=== PATIENT | male | born 1995 | race Caucasian/White ===

== ENCOUNTER 2022-09-20 16:22 | Emergency (ER) | payer OTHER, SELFPAY ==
--- NOTE | ~2022-09-20 | XR_ITS ---
EXAMINATION: XR shoulder RT min 2V DATE: 09/20/2022 17:15 INDICATION: Nontraumatic right shoulder pain TECHNIQUE: AP internally and externally rotated, AP oblique externally rotated and transscapular Y vi ews of the right shoulder were obtained. COMPARISON: None FINDINGS: Alignment of the right acromioclavicular joint space. There appears to be some age-indeterminate frag mentation, potentially acute at the lateral head of the clavicle. Alignment is otherwise normal. No o ther lesions suspicious for fracture. Glenohumeral joint space is normal.Visual is portions of the ri ght lung are clear. Soft tissues are unremarkable. IMPRESSION: Widening of the right acromioclavicular joint spaces with some age-indeterminate fragmentation at the lateral head of the right clavicle. Differential would include sequela of prior trauma with distal c lavicular fracture or changes of prior acromioplasty. Correlate with clinical/surgical history. 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 Differential would i nclude sequela of prior trauma with distal clavicular fracture or changes of pr ior acromioplasty. Correlate with clinical/surgical history.
[2022-09-20 16:22] VITALS: BP 150/82; PULSE 81; RESP 16; TEMP 37.1; O2SAT 98
--- NOTE | 2022-09-20 16:56 | ED.UPPEXIN ---
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 recent MRI to evaluate right carpal tunnel syndrome MD complaint: injury to: right Onset (ago): day(s) ( pain in the shoulder present for the past 10 days.) Other Extremity Injury: Right: shoulder Other injuries: none Handedness: right Place: work Severity: severe Relieving factors: immobilization Exacerbating factors: movement of extremity Context: other ( Patient does concrete work and lifts heavy objects) Associated symptoms: denies other symptoms Related Data Allergies Allergy/AdvReac Type Severity Reaction Status Date / Time No Known Allergies Allergy Verified 09/20/22 17:57 Review of Systems Review of Systems: All systems reviewed & are unremarkable except as noted in HPI and below Constitutional: Constitutional: Reports as per HPI and Reports no additional constitutional complaints Eyes: Eyes: Reports as per HPI and Reports no additional eye complaints ENT: Reports system reviewed and no additional complaints, except as documented and Reports as per HPI Cardiovascular: Cardiovascular: Reports as per HPI and Reports no additional cardiovascular complaints Respiratory: Respiratory: Reports as per HPI and Reports no additional respiratory complaints Gastrointestinal: Gastrointestinal: Reports as per HPI and Reports no additional gastrointestinal complaints Genitourinary: Genitourinary: Reports no additional male genitourinary complaints and Reports as per HPI Musculoskeletal: Musculoskeletal: Reports no additional musculoskeletal complaints and Reports as per HPI Comments: right shoulder pain worse with movement Integumentary/Breasts: Skin/Breast: Reports system reviewed and no additional complaints, except as docu and Reports as per HPI Neurologic: Reports system reviewed and no additional complaints, except as documented and Reports as per HPI Psychiatric: Psychiatric: Reports no additional psychiatric complaints and Reports as per HPI Endocrine: Endocrine: Reports no additional endocrine complaints and Reports as per HPI Hematologic/Lymphatic: Hematologic/Lymphatic: Reports no additional hematologic/lymphatic complaints and Reports as per HPI Allergic/Immunologic: Allergic/Immunologic: Reports no additional allergic/immunologic complaints and Reports as per HPI Exam Const: General: healthy appearing, no acute distress and alert Nutritional Appearance: well nourished Limitations: no limitations HENMT: Head: normal to inspection Ears: external ears normal Face/Nose/Sinus: Normal external nose present Face and sinus: normal facial exam Mouth: Yes Normal oral and palatal mucosa present Throat: posterior oropharynx normal Eyes: Conjunctivae: conjunctivae normal Pupils: Equal, round and reactive pupils present EOM: EOMs intact bilaterally Direct Ophthalmoscopy: no photophobia Neck: Neck: normal visual inspection, no lymphadenopathy and no meningeal signs Chest: Chest palpation & inspection: normal inspection of the chest Resp: Effort & Inspection: normal respiratory effort Auscultation: clear to auscultation bilaterally Cardio: Rate: regular rate Rhythm: regular rhythm GI: GI Palp: Yes Soft to palpation Auscultation: normal bowel sounds Rectal Exam: normal sphincter tone : General: Yes no CVA tenderness Back/Spine/Pelvis: Back: no CVA tenderness Skin: General skin exam: normal color Rashes: no rashes Wounds: no wounds Neuro: General: patient oriented x3, moves all extremities, no meningeal signs, no focal motor deficits and CN's II-XI intact bilaterally Extrem: General: normal
[2022-09-20 18:09] VITALS: BP 148/82; PULSE 80; RESP 20; TEMP 36.4; O2SAT 94
--- NOTE | 2022-09-20 18:14 | PC.NURSE ---
pt declined pain medications offered per dr noland.
== END 2022-09-20 18:14 | disposition home or self-care (01) ==
PROVIDERS: Emergency Provider Internal Medicine Critical Care Medicine
DX: M25.511 Pain in right shoulder (principal)
CPT/HCPCS: 73030; 99283

== ENCOUNTER 2022-10-17 09:38 | Emergency (ER) | payer OTHER, SELFPAY ==
[2022-10-17 09:38] VITALS: BP 120/71; PULSE 72; RESP 16; TEMP 37; O2SAT 97
--- NOTE | 2022-10-17 09:39 | ED.DENTAL ---
HPI - Dental/Oral General Chief complaint: Dental/Oral Stated complaint: toothache Time Seen by Provider: 10/17/22 09:39 Source: patient Mode of arrival: ambulatory Limitations: no limitations History of Present Illness HPI Narrative: 27-year-old male presents to the with left lower jaw pain/dental pain the past 1 year. The patient has extensive dental caries. MD Complaint: tooth pain Location: Tooth # ( 18.) Onset (ago): year(s) ( Off and on for the past 1 year) Duration: constant Severity: severe Relieving factors: nothing Exacerbating factors: cold and heat Context: history of dental caries Treatment prior to arrival: none Related Data Allergies Allergy/AdvReac Type Severity Reaction Status Date / Time No Known Allergies Allergy Verified 09/20/22 17:57 Review of Systems Review of Systems: All systems reviewed & are unremarkable except as noted in HPI and below Constitutional: Constitutional: Reports as per HPI and Reports no additional constitutional complaints Eyes: Eyes: Reports as per HPI and Reports no additional eye complaints ENT: Reports system reviewed and no additional complaints, except as documented and Reports as per HPI Cardiovascular: Cardiovascular: Reports as per HPI and Reports no additional cardiovascular complaints Respiratory: Respiratory: Reports as per HPI and Reports no additional respiratory complaints Gastrointestinal: Gastrointestinal: Reports as per HPI and Reports no additional gastrointestinal complaints Genitourinary: Genitourinary: Reports no additional male genitourinary complaints and Reports as per HPI Musculoskeletal: Musculoskeletal: Reports no additional musculoskeletal complaints and Reports as per HPI Integumentary/Breasts: Skin/Breast: Reports system reviewed and no additional complaints, except as docu and Reports as per HPI Neurologic: Reports system reviewed and no additional complaints, except as documented and Reports as per HPI Psychiatric: Psychiatric: Reports no additional psychiatric complaints and Reports as per HPI Endocrine: Endocrine: Reports no additional endocrine complaints and Reports as per HPI Hematologic/Lymphatic: Hematologic/Lymphatic: Reports no additional hematologic/lymphatic complaints and Reports as per HPI Allergic/Immunologic: Allergic/Immunologic: Reports no additional allergic/immunologic complaints and Reports as per HPI Exam Const: General: healthy appearing and no acute distress Nutritional Appearance: well nourished Orientation/consciousness: patient oriented x3 Limitations: no limitations HENMT: Head: normal to inspection Ears: external ears normal Face/Nose/Sinus: Normal external nose present Face and sinus: normal facial exam Teeth and gingiva: dentition normal ( extensive dental caries involving the premolars and the molars.) Throat: posterior oropharynx normal Eyes: Conjunctivae: conjunctival abnormality ( Right subconjunctival hemorrhage) Direct Ophthalmoscopy: no photophobia Neck: Neck: normal visual inspection, no lymphadenopathy and no meningeal signs Chest: Chest palpation & inspection: normal inspection of the chest Resp: Effort & Inspection: normal respiratory effort Auscultation: clear to auscultation bilaterally Cardio: Rate: regular rate Rhythm: regular rhythm GI: GI Palp: Yes Soft to palpation Auscultation: normal bowel sounds : General: Yes bladder normal to palpation Back/Spine/Pelvis: Back: no CVA tenderness Skin: General skin exam: normal color Rashes: no rashes Wounds: no wounds Neuro: General: patient oriented x3, moves all extremities, no meningeal signs, no focal motor deficits and CN's II-XI intact bilaterally Cranial nerves: Yes Nystagmus not present Speech: normal speech Gait exam (Neuro): Normal gait present Extrem: General: normal to inspection, no clubbing, cyanosis or edema and no pedal edema Psych: Mental Status: mental status grossly normal Affect: normal affect A
[2022-10-17] MEDS: KETOROLAC 30 MG/ML VIAL (*BKC) IM (09:50)
[2022-10-17 10:02] VITALS: BP 120/71; PULSE 72; RESP 16; TEMP 36.4; O2SAT 97
== END 2022-10-17 10:06 | disposition home or self-care (01) ==
PROVIDERS: Emergency Provider Internal Medicine Critical Care Medicine
DX: K08.89 Other specified disorders of teeth and supporting structures (principal); K02.9 Dental caries, unspecified
CPT/HCPCS: 96372; 99283; J1885

== ENCOUNTER 2022-11-26 12:15 | Emergency (ER) | payer OTHER, SELFPAY ==
--- NOTE | ~2022-11-26 | XR_ITS ---
Right Hand Technique: PA, oblique, and lateral views were obtained. Clinical History: Third metacarpal pain/swelling Findings: No acute fracture or dislocation is seen. Osseous alignment is anatomic. Joint spaces are p reserved. Soft tissues are unremarkable. Impression: Unremarkable right hand. Reviewed, dictated and finalized at location . [employer] FOOD MANAGER Impression: Unremarkable right hand.
[2022-11-26 12:15] VITALS: BP 125/73; PULSE 94; RESP 20; TEMP 36.9; O2SAT 97
--- NOTE | 2022-11-26 12:21 | ED.UPPEXIN ---
HPI - Extremity Injury (Upper) General Chief Complaint: Extremity Injury, Upper Stated Complaint: hand pain Time Seen by Provider: 11/26/22 12:16 History of Present Illness HPI narrative: This is a 27-year-old male, who denies past medical history, presenting to the complaining of right hand pain. The patient states he accidentally struck the right hand with a hammer at work 3 days ago. He complains of 6-7/10 pain and occasional paresthesias. He denies other injury and has no other complaints today. Related Data Home Medications Medication Instructions Recorded Confirmed No Home Medications 11/26/22 11/26/22 Allergies Allergy/AdvReac Type Severity Reaction Status Date / Time No Known Allergies Allergy Verified 09/20/22 17:57 Review of Systems Review of Systems: CONSTITUTIONAL: Denies fever, chills, or sweats. ENT: Denies rhinorrhea, congestion, sore throat, or otalgia. CARDIOVASCULAR: Denies chest pain, palpitations, or edema. RESPIRATORY: Denies cough or dyspnea. GASTROINTESTINAL: Denies abdominal pain, nausea, vomiting, or diarrhea. SKIN: Denies rash or itching. MUSCULOSKELETAL: Right hand pain denies back pain, or myalgia. NEUROLOGIC: Intermittent paresthesias of right fingers denies headache, dizziness, or weakness. PSYCHIATRIC: Denies anxiety or depression. [facility] Social History Social History (Updated 11/26/22 @ 12:24 by Arnav Mann MD) Smoking status: Never smoker Alcohol intake: current Substance use: current Substance use type: marijuana Exam Narrative: GENERAL: Well-developed, well-nourished, and in no acute distress. HEAD: Normocephalic, atraumatic. EYES: PERRLA and EOMI. CHEST: Clear to auscultation. No respiratory distress. No wheezes rales or rhonchi HEART: Regular rate and rhythm. No murmur heard. Normal peripheral pulses. ABDOMEN: Soft, nontender, nondistended, normal active bowel sounds. EXTREMITIES: Mild swelling over the dorsal aspect of the right hand. There is approximate 1cm area of resolving ecchymosis to the dorsal aspect of the hand overlying the midshaft third metacarpal. Range of motion of the fingers intact. 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 Otherwise normal range of motion of the hand, fingers and wrist. No edema. SKIN: Warm, dry, no rash. NEURO: No focal deficits. Alert and oriented x3. PSYCH: Normal mood and affect. Course Course Emergency Course: 12:52 - X-ray negative for fracture or dislocation. I suspect contusion of the hand. Discussed pain management with RICE and Tylenol and ibuprofen. Discussed return and emergency precautions including signs/symptoms of neurovascular compromise and infection. The patient voiced understanding and is comfortable with the plan. All questions answered to his satisfaction Vital Signs Vital signs: Vital Signs Temperature 98.4 F 11/26/22 12:15 Pulse Rate 94 11/26/22 12:15 Respiratory Rate 20 11/26/22 12:15 Blood Pressure 125/73 11/26/22 12:15 Pulse Oximetry 97 11/26/22 12:15 Oxygen Delivery Room Air 11/26/22 12:15 Temperature 98.4 F 11/26/22 12:15 Pulse Rate 94 11/26/22 12:15 Respiratory Rate 20 11/26/22 12:15 Blood Pressure 125/73 11/26/22 12:15 Pulse Oximetry 97 11/26/22 12:15 Oxygen Delivery Room Air 11/26/22 12:15 Discharge Plan Discharge Clinical Impression: Contusion of hand, right, Hand pain, right Patient Disposition: Home, Self-Care Condition: Stable Instructions: Antibiotic Form Additional Instructions: You were seen in the emergency department. An x-ray was not concerning for fracture or dislocation. If you develop blue or cold fingers, develop fevers with severe hand pain and redness, or have other emergent concerns for life, limb, or eyesight, return to the emergency department. Patient Language: Wolof Prescriptions: No Action No Home Medications Follow-up/Referrals: [facility]
[2022-11-26] MEDS: ACETAMINOPHEN 500 MG TABLET 1000 MG PO (12:47)
== END 2022-11-26 12:55 | disposition home or self-care (01) ==
PROVIDERS: Emergency Provider Preventive Medicine Aerospace Medicine
DX: S60.221A Contusion of right hand, initial encounter (principal); W22.8XXA Striking against or struck by other objects, initial encounter; F12.90 Cannabis use, unspecified, uncomplicated
CPT/HCPCS: 73130; 99283

== ENCOUNTER 2022-12-09 13:07 | Emergency (ER) | payer OTHER, SELFPAY ==
[2022-12-09 13:09] VITALS: BP 132/77; PULSE 66; RESP 18; TEMP 36.3; O2SAT 99
--- NOTE | 2022-12-09 13:35 | ED.SKABFB ---
HPI - Skin/Abscess/Foreign Bdy General Chief complaint: Skin/Abscess/Foreign Body Stated complaint: knot on right side Time Seen by Provider: 12/09/22 13:19 History of Present Illness HPI narrative: This is a 27-year-old male with no known significant past medical history, who presents to the emergency department this the skin of the right chest. He states his girlfriend discovered it 1 week ago but forgot to tell him about it until today. He denies pain, fevers, erythema or other swelling. Related Data Home Medications Medication Instructions Recorded Confirmed No Home Medications 11/26/22 12/09/22 Allergies Allergy/AdvReac Type Severity Reaction Status Date / Time No Known Allergies Allergy Verified 12/09/22 13:16 Review of Systems Review of Systems: CONSTITUTIONAL: Denies fever, chills, or sweats. ENT: Denies rhinorrhea, congestion, sore throat, or otalgia. CARDIOVASCULAR: Denies chest pain, palpitations, or edema. RESPIRATORY: Denies cough or dyspnea. GASTROINTESTINAL: Denies abdominal pain, nausea, vomiting, or diarrhea. GENITOURINARY: Denies dysuria or hematuria. SKIN: Lump in the skin of the right breast denies rash or itching. MUSCULOSKELETAL: Denies back pain, joint pain, or myalgia. NEUROLOGIC: Denies headache, numbness, dizziness, or weakness. PSYCHIATRIC: Denies anxiety or depression. [facility] Social History Social History Smoking status: Never smoker Alcohol intake: current Substance use: current Substance use type: marijuana Exam Narrative: GENERAL: Well-appearing, well-nourished, and in no acute distress. HEAD: Normocephalic, atraumatic. EYES: PERRLA and EOMI. CHEST: Clear to auscultation. No respiratory distress. No wheezes rales or rhonchi HEART: Regular rate and rhythm. No murmur heard. Normal peripheral pulses. ABDOMEN: Soft, nontender, nondistended, normal active bowel sounds. EXTREMITIES: Normal range of motion. No edema. SKIN: A 5 mm, mobile, nontender mass is noted in the skin of the right breast at the 11 o'clock position, approximately 5 cm superior to the nipple. There is no noted erythema or induration of the overlying skin. There are healing lesions noted overlying the sternum, and at the inferior aspect of the right axilla, consistent with healing furuncles. No other cervical or inguinal lymphadenopathy is noted. NEURO: No focal deficits. Alert and oriented x3. PSYCH: Normal mood and affect. Course Course Emergency Course: 13:35 - The patient's exam is consistent with lymphadenopathy. Considering the presence of nearby healing furuncles, I suspect a reactive lymphadenopathy. No other lymphadenopathy was noted on exam. Bedside ultrasound battery was depleted; I was unable to assess for fluid. My suspicion for abscess, however, is low at this time. I advised the patient to follow-up with his primary care doctor for further evaluation. Discussed return and emergent precautions including signs/symptoms of infection. The patient voiced understanding and is comfortable with the plan. All questions answered to his satisfaction. Vital Signs Vital signs: Vital Signs Temperature 97.4 F L 12/09/22 13:09 Pulse Rate 66 12/09/22 13:09 Respiratory Rate 18 12/09/22 13:09 Blood Pressure 132/77 12/09/22 13:09 Pulse Oximetry 99 12/09/22 13:09 Oxygen Delivery Room Air 12/09/22 13:09 Temperature 97.4 F L 12/09/22 13:09 Pulse Rate 66 12/09/22 13:09 Respiratory Rate 18 12/09/22 13:09 Blood Pressure 132/77 12/09/22 13:09 Pulse Oximetry 99 12/09/22 13:09 Oxygen Delivery Room Air 12/09/22 13:10 MDM - Skin/Abscess/Foreign Bdy MDM Narrative Medical decision making narrative: Plan: Bedside ultrasound, primary care follow-up Differential Diagnosis Differential diagnosis: Likely abscess of skin or subcutaneous tissue and other (Lymphadenopathy, other) Discharge Plan Discharge Clinical
== END 2022-12-09 14:00 | disposition home or self-care (01) ==
PROVIDERS: Emergency Provider Preventive Medicine Aerospace Medicine
DX: R22.2 Localized swelling, mass and lump, trunk (principal)
CPT/HCPCS: 99281